=== PATIENT | female | born 1965 | race Caucasian/White ===

== ENCOUNTER 2025-03-04 14:11 | Outpatient (CLI) | payer OTHER, SELFPAY ==
--- NOTE | 2025-03-04 14:30 | MR_ITS ---
[address] [address] Phone:?[phone] Fax:?[phone] Referring Physician Information: Mickey Chapman M.D. [id number] [address] Phone:?[phone] Fax:?[phone] Patient:Ayala Martin D.O.B:?1965 Sex:?Female Phone:?[phone] [facility] MRN:?[id number] Exam Date:?03/04/2025 EXAM: MRI of the LEFT SHOULDER without contrast CLINICAL: Evaluate for rotator cuff tear. COMPARISONS: X-rays dated 01/14/2025. TECHNICAL: Multiplanar multisequence MRI of the left shoulder was obtained. SEDATION: None. CONTRAST: None. FINDINGS: Rotator cuff: Supraspinatus/Infraspinatus: There is advanced tendinosis of the distal supraspinatus tendon and anterior distal infraspinatus tendon. There is focal moderate partial interstitial insertional tearing of the anterior distal supraspinatus tendon on coronal series 5 image 11 with minimal partial interstitial insertional tearing of the remainder of the distal supraspinatus tendon. Mild partial interstitial tearing of the infraspinatus tendon. No significant fatty atrophy of the muscles. Teres minor: No tendinosis, tear or atrophy. Subscapularis: Mild tendinosis of the distal tendon without evidence of significant tendon tear. No significant fatty atrophy of the muscle. Bursae: Subacromial-subdeltoid: There is mild fluid within the anterior subdeltoid bursa. Mild edema within the remainder of the bursa. Subcoracoid: No significant bursal fluid. Coracoacromial arch: Acromion morphology: Type II. No os acromiale. Acromiohumeral space: Within normal limits. Coracohumeral space: Within normal limits. Biceps tendon, long head: There is moderate tendinosis of the intra-articular tendon. No evidence of significant tendon tear or displacement. Glenohumeral joint: No evidence of significant joint effusion. Articular cartilage: No significant chondral loss. Capsule: No evidence of capsular thickening or injury. Labrum: There is tearing of the superior labrum extending posterior to the biceps anchor as seen on coronal series 5 image 14-17. No additional labral tear identified on this nonarthrogram exam. No perilabral cyst identified. Bones: No suspicious marrow signal alteration, fracture or dislocation. Acromioclavicular joint: Advanced changes of arthrosis. No AC joint injury/widening. IMPRESSION: 1. Advanced tendinosis of the distal supraspinatus tendon and anterior distal infraspinatus tendon. There is focal moderate partial interstitial insertional tearing of the anterior distal supraspinatus tendon with minimal partial interstitial insertional tearing of the remainder of the distal supraspinatus tendon. Mild partial interstitial tearing of the infraspinatus tendon. 2. Mild tendinosis of the distal subscapularis tendon. 3. Moderate tendinosis of the intra-articular long head biceps tendon. 4. Tearing of the superior labrum. 5. Advanced AC joint arthrosis. JCZ Electronically signed on 03/04/2025 4:16:00 PM by Piero Soto D.O.
== END 2025-03-04 14:12 | disposition home or self-care (01) ==
LOC: MRI 14:12
PROVIDERS: PCP Internal Medicine; Visit Provider Orthopaedic Surgery
DX: M25.512 Pain in left shoulder (principal); M75.102 Unspecified rotator cuff tear or rupture of left shoulder, not specified as traumatic; S43.432A Superior glenoid labrum lesion of left shoulder, initial encounter; M19.012 Primary osteoarthritis, left shoulder; M25.812 Other specified joint disorders, left shoulder; M75.82 Other shoulder lesions, left shoulder
CPT/HCPCS: 73221

== ENCOUNTER 2025-03-07 06:03 | Day surgery (SDC) | payer OTHER, SELFPAY ==
[2025-03-07] VITALS (9 sets, daily range): BP systolic 118–149; BP diastolic 71–92; PULSE 59–64; RESP 14–16; TEMP 36.7–36.8; O2SAT 95–98; BMI 39.9
[2025-03-07] MEDS: LIDOCAINE 1% MDV INJECTION (07:05)
[2025-03-07] MEDS: BUPIVACAINE 0.5% 30 ML INJECTION (07:05)
--- NOTE | 2025-03-07 07:05 | P.ORPRC_ITS ---
Procedure Note Date of procedure: 03/07/25 Procedure: PREOPERATIVE DIAGNOSIS: 1. Right middle finger trigger digit 2. Right ring finger trigger digit POSTOPERATIVE DIAGNOSIS: 1. Right middle finger trigger digit 2. Right ring finger trigger digit PROCEDURE: 1. Right middle finger trigger (A1 flo) release 2. Right ring finger trigger (A1 flo) release SURGEON: Sg Chapman MD. SUPERVISOR DRIED [employer]AST: Esther Aleaxnder P.A.-C. An group fitness assistant department head was critical for this case to aid in patient positioning, tissue retraction, limb manipulation/positioning, and closure. ANESTHESIA: Local anesthetic IMPLANTS: None TOURNIQUET: Not utilized COMPLICATIONS: None INDICATIONS: The patient is a pleasant 59-year-old female who has history of right middle finger and ring finger pain and triggering. Symptoms did not improve with conservative management. Patient subsequently elected to proceed with surgical intervention consisting of right middle finger and ring finger A1 flo releases. Prior to surgery risks and benefits were discussed with patient all questions were answered informed consent was obtained. DESCRIPTION OF PROCEDURE: Patient was seen preoperatively and operative site was marked. The subcutaneous tissues overlying the right ring finger and middle finger A1 pulleys were injected with combination of 1% lidocaine and 0.25% bupivacaine. Patient was then brought to the operating room placed in supine position on the OR table. A tourniquet was placed on the patient's right arm and right upper extremity was prepped and draped in usual sterile fashion. A surgical time-out was performed confirming patient name, procedure, and location. A skin incision measuring approximately 1 cm was made longitudinally over the A1 flo of the right middle finger. Blunt dissection was used to dissect through subcutaneous tissues. Bipolar electrocautery was used to achieve hemostasis. The underlying flexor tendons and A1 flo were identified and retractors were used to protect the neurovascular structures. The A1 flo was then released using a tenotomy scissor. After complete release of the A1 flo, the patient was asked to flex and extend their fingers, and no active triggering was noted. Attention was then directed to the ring finger trigger release. A skin incision measuring approximately 1 cm was made longitudinally over the A1 flo of the right ring finger. Blunt dissection was used to dissect through subcutaneous tissues. Bipolar electrocautery was used to achieve hemostasis. The underlying flexor tendons and A1 flo were identified and retractors were used to protect the neurovascular structures. The A1 flo was then released using a tenotomy scissor. After complete release of the A1 flo, the patient was asked to flex and extend their fingers, and no active triggering was noted. Surgical incisions were then irrigated with normal saline. Skin incisions were closed with 4-0 nylon horizontal mattress sutures, and a sterile dressing was applied. Patient was then transferred to the recovery room in stable condition. POSTOPERATIVE PLAN: 1. Patient will be discharged to home day of surgery. 2. They were given instructions for wound care and finger range of motion exercises. 3. Ice, Tylenol and/or ibuprofen as needed for pain control. 4. Return to the clinic for follow-up evaluation in 10-14 days for wound check and suture removal.
--- NOTE | 2025-03-07 07:05 | W.PM.H&PU ---
History & Physical Update History & Physical Update H&P Reviewed and patient assessed: No changes noted
[2025-03-07] MEDS: LIDOCAINE 1% MDV 20 ML INJECTION (07:40)
[2025-03-07] MEDS: BUPIVACAINE 0.5 % 10 ML VIAL INJECTION (07:40)
[2025-03-07] MEDS: BACITRACIN OINTMENT BULK TUBE 1 APPLIC TOPICAL (07:47)
== END 2025-03-07 08:12 | disposition home or self-care (01) ==
PROVIDERS: PCP Internal Medicine; Visit Provider Orthopaedic Surgery
PROC: (CPT 26055; principal; 2025-03-07 07:15)
DX: M65.331 Trigger finger, right middle finger (principal); M65.341 Trigger finger, right ring finger
CPT/HCPCS: 26055 ×2; J2003; A9270; J0665

== ENCOUNTER 2025-04-25 09:07 | Day surgery (SDC) | payer OTHER, SELFPAY ==
[2025-04-25] VITALS (26 sets, daily range): BP systolic 97–142; BP diastolic 50–96; PULSE 60–81; RESP 14–24; TEMP 36.3–36.5; O2SAT 91–98; BMI 40.9
--- NOTE | 2025-04-25 09:39 | P.ORPRC_ITS ---
Procedure Note Date of procedure: 04/25/25 Procedure: PREOPERATIVE DIAGNOSES: 1. Left shoulder rotator cuff tendinosis. 2. Left shoulder subacromial impingement syndrome and bursitis. 3. Left shoulder acromioclavicular joint osteoarthritis POSTOPERATIVE DIAGNOSES: 1. Left shoulder rotator cuff tear (supraspinatus). 2. Left shoulder subacromial impingement syndrome and bursitis. 3. Left shoulder acromioclavicular joint arthritis. 4. Left shoulder superior labrum degenerative tearing NAME OF OPERATION: 1. Left shoulder arthroscopic rotator cuff repair. 2. Left shoulder arthroscopic bursectomy, subacromial decompression/partial acromioplasty. 3. Left shoulder arthroscopic glenohumeral debridement. 4. Left shoulder arthroscopic distal clavicle excision. SURGEON: Sg Chapman MD GEOMORPHOLOGY TEACHER: Esther Alexander P.A.-C.. An public health assistant was critical for this case to aid in patient positioning, suture manipulation, arm positioning, instrument positioning, and wound closure. ANESTHESIA: General plus preoperative supraclavicular block. IMPLANTS: Arthrex 2.6 mm FiberTak anchor double loaded and 4.75 mm knotless BioComposite SwiveLock anchor COMPLICATIONS: None ESTIMATED BLOOD LOSS: 10 mL INDICATIONS: The patient is a pleasant, 59-year-old female who has experienced left shoulder pain that has been increasing in recent time. Physical exam and imaging were consistent with a rotator cuff tendinosis, subacromial impingement, and acromioclavicular joint osteoarthritis. Given these findings and failure to improve with nonoperative management, recommendation was made for surgery. FINDINGS: Exam under anesthesia revealed stable shoulder with full range of motion. The diagnostic arthroscopy revealed healthy chondral surfaces of the glenohumeral joint. There was mild fraying of the upper subscapularis but subscapularis was otherwise intact. The long head of the biceps tendon was intact. There was fraying of the superior anterior superior labrum consistent with mild degenerative tear, but biceps anchor was intact. Labrum was stable after debridement. No loose bodies in the pouch or subscapularis recess. The rotator cuff tendon was found to be torn full thickness at the anterior margin measuring approximately 1 cm in the anterior posterior dimension with minimal retraction. Diffuse subacromial bursitis. Moderate acromioclavicular joint osteoarthritis with large inferior osteophytes. PROCEDURE: Following a thorough discussion of risks, benefits, and alternatives, consent was obtained and the operative shoulder was marked. A supraclavicular nerve block was performed by anesthesia staff in preop holding. The patient was brought to the operating room and placed supine on the operating table. Induction of anesthesia was completed, and patient was given IV Ancef preoperatively for prophylaxis. A surgical time-out was performed confirming patient identity, surgical site, and procedure. Patient was placed into the beach chair position. Head was placed in padded cotton header in neutral alignment, and all bony prominences were well padded. The operative shoulder and upper extremity were prepped and draped in the appropriate sterile fashion using ChloraPrep. The glenohumeral joint was injected with 40 mL of normal saline using and 18g spinal needle from a posterior approach. Posterior portal was established. Anterior portal was established after localization with a spinal needle and a 7.0 mm cannula was silvana hunter here. Diagnostic arthroscopy was then performed with findings as noted above. Attention was 1st directed to debridement of the glenohumeral joint. The frayed aspects of the superior labrum were debrided with motorized shaver as were the frayed aspects of the upper subscapularis. After debridement the subscapularis was confirmed to be intact. The labrum was also intact and stable. The biceps tendon was normal in appearance. There was noted be full-thickness tear of the anterior supraspinatus. The footprint was debrided of soft tissue using the motorized shaver and the degenerative portions of the undersurface of the cuff tissue were debrided with a shaver. A Cam was then moved to the subacromial space. A lateral portal was established after localization with spinal needle. Subacromial bursectomy was performed with arthroscopic shaver and radiofrequency ablator. Subacromial decompression and partial acromioplasty was performed using the bone-cutting shaver and arthroscopic bur. Attention was then directed to the rotator cuff repair. Footprint was debrided of soft tissue and gently decorticated with the bur. Frayed edges of the tendon were debrided with a shaver. The cuff was easily mobilized back to its footprint. A passport cannula placed in lateral portal. A 2.6 mm FiberTak anchor double loaded with tape was placed in the medial aspect of the supraspinatus footprint. Dianxinion suture Passer was then used to pass each limb of suture the cuff tendon. All 4 limbs were then brought over the top of the tendon and incorporated into a 4.75 mm knotless BioComposite SwiveLock anchor which was placed lateral to the supraspinatus footprint. The sutures were tensioned and the SwiveLock anchor was secured into position. The knotless suture was passed through the anterior aspect of the supraspinatus and tension. Remnant sutures were all cut and removed. The cuff was then inspected and was noted be firmly reattached to its footprint. Attention was then directed to the acromioclavicular joint. Joint was debrided of soft tissue using the radiofrequency ablator. The bur inferior bone spurs off the acromion and clavicle at the acromioclavicular joint were removed using combination of the bone-cutting shaver and the arthroscopic bur. A distal clavicle excision was then completed using the bone-cutting shaver and bur. A 70 degree scope was utilized to assist with visualization. After distal clavicle excision was performed acromioclavicular distance measured approximately 1 cm. Hemostasis was achieved with the radiofrequency ablator. Instruments and cannulas were removed from the joint. Excess fluid was drained, and wound closure performed with 3-0 nylon simple interrupted sutures. Sterile dressings were applied, and arm was placed into an abduction sling. The patient was rotated into the supine position, awoken from anesthesia, and transferred to the PACU in stable condition. PLAN: 1. Discharged to home day of surgery. 2. Ice for pain and swelling. 3. Tylenol and oxycodone as needed for pain control. 4. Abduction sling at all times except for ROM and showering. -Remove sling several times daily for pendulum exercises finger, wrist, and elbow range of motion. 5. Follow-up in orthopedic clinic in 10-14 days for wound check and suture removal. 6. Will initiate formal physical therapy 1-2 weeks postoperatively per the standard rotator cuff repair protocol
--- NOTE | 2025-04-25 09:39 | W.PM.H&PU ---
History & Physical Update History & Physical Update H&P Reviewed and patient assessed: No changes noted
[2025-04-25] MEDS: LACTATED RINGERS 1000 ML 1,000 ML 100 ML IV ×2 (09:57→11:32)
[2025-04-25] MEDS: SODIUM CHLORIDE 0.9 % (FLUSH) 10 ML SYRINGE IVF (09:58)
[2025-04-25] MEDS: MIDAZOLAM HCL 1 MG/ML inj IVP (10:12)
--- NOTE | 2025-04-25 10:15 | SUR.PREOP ---
TIME?OUT:?1010, left shoulder PT/RN/MDA?VERIFICATION?OF?SURGICAL?SITE,?PROCEDURE,?AND?CONSENT OBTAINED?PRIOR?TO?INVASIVE?PROCEDURE.
[2025-04-25] MEDS: EPINEPHrine 1 MG in SODIUM CHLORIDE IRRIG SOLUTION 3,000 ML 3001 MG IRRIGATION ×8 (11:21→12:40)
--- NOTE | 2025-04-25 11:26 | SUR.OPER ---
PATIENT QUESTIONS ANSWERED SATISFACTORILY PREOPERATIVELY. PATIENT BROUGHT TO OR #3 PER CART FOLLOWING THE BLOCK. Patient positioned supine on OR #3 bed for the intubation.? Perioperative team wrapped the right arm in a neutral position on the pt. abdomen with the drawsheet. Left arm elevated on an IV pole in a padded strap. Final approval of positioning by surgeon. CONTINUOUS IRRIGATION OF THE LEFT SHOULDER WITH MIXTURE OF 3000 NACL AND 1mg OF EPINEPHRINE DURING PROCEDURE.
--- NOTE | 2025-04-25 11:49 | P.ANES_ITS ---
Anesthesia Charges Start Date/Time Anesthesia Start Date: 04/25/25 Anesthesia Start Time: 10:47 Stop Date/Time Anesthesia Stop Date: 04/25/25 Anesthesia Stop Time: 13:27 Coding CPT Codes CPT Codes: ANESTH SURGERY OF SHOULDER - 84790 ([id number]) P3 - PATIENT W/SEVERE SYS DISEASE, QK - RN TELEMETRY 2-4 CNCRNT ANES PROC, QX - METER CALIBRATOR SVC W/ MD MED DIRECTION
--- NOTE | 2025-04-25 11:49 | W.ANESCHARGE ---
Anesthesia Charges Start Date/Time Anesthesia Start Date: 04/25/25 Anesthesia Start Time: 10:47 Stop Date/Time Anesthesia Stop Date: 04/25/25 Anesthesia Stop Time: 13:27 Coding CPT Codes CPT Codes: ANESTH SURGERY OF SHOULDER - 59822 ([id number]) P3 - PATIENT W/SEVERE SYS DISEASE, QK - ELECTROPLATING LABORER 2-4 CNCRNT ANES PROC, QX - GEOTHERMAL POWERPLANT MECHANIC SVC W/ MD MED DIRECTION
--- NOTE | 2025-04-25 11:50 | P.NB_ITS ---
Nerve Block Nerve Block Time Seen by Provider: 10:10 Date Seen: 04/25/25 Type of block requested by surgeon for post-operative analgesia: supraclavicular Side: left Time out performed: Yes Verification of patient name: Yes Verification of date of : Yes Site marking: site marked Name of person performing procedure: Santana Continuous monitoring Was continuous monitoring of O2 sat, B/P, threat monitoring analyst, recorded every 15 minutes?: Yes Procedure Checklist: sterile prep, needles and gloves Ultrasound guided. Images saved: Yes Medications given in 5ml increments after negative aspiration: Ropivicaine %: 0.5 mL: 15 Needle gauge: 22 Precedex (mcg): 25 Patient tolerated procedure well: Yes Block Charges Block Charge (with Pro Fee): Brachial Plexus Use of Ultrasound Machine for Block: Yes- US Guidance/pain block
--- NOTE | 2025-04-25 13:25 | P.ANES_ITS ---
Anesthesia Charges Start Date/Time Anesthesia Start Date: 04/25/25 Anesthesia Start Time: 10:47 Stop Date/Time Anesthesia Stop Date: 04/25/25 Anesthesia Stop Time: 13:27 Coding CPT Codes CPT Codes: ANESTH SURGERY OF SHOULDER - 53188 ([id number]) P3 - PATIENT W/SEVERE SYS DISEASE, QK - SALES DONOR RECRUITMENT REPRESENTATIVE 2-4 CNCRNT ANES PROC, QX - BAKER HELPER SVC W/ MD MED DIRECTION
--- NOTE | 2025-04-25 13:25 | W.ANESCHARGE ---
Anesthesia Charges Start Date/Time Anesthesia Start Date: 04/25/25 Anesthesia Start Time: 10:47 Stop Date/Time Anesthesia Stop Date: 04/25/25 Anesthesia Stop Time: 13:27 Coding CPT Codes CPT Codes: ANESTH SURGERY OF SHOULDER - 75023 ([id number]) P3 - PATIENT W/SEVERE SYS DISEASE, QK - TECHNICAL PRODUCT MANAGER 2-4 CNCRNT ANES PROC, QX - SHED BOSS SVC W/ MD MED DIRECTION
[2025-04-25] MEDS: ONDANSETRON 2 MG/ML inj 4 MG IVP (13:37)
--- NOTE | 2025-04-25 13:55 | SUR.PHASEI ---
Patient feels stills nauseous, anesthesia consulted, Haldol given by anesthesia.They will check back in a few minutes.
--- NOTE | 2025-04-25 13:59 | SUR.PHASEI ---
Tried a quesy essential oil patch for nausea. Patient did not like that.
--- NOTE | 2025-04-25 14:20 | SUR.PHASEI ---
Patient still nauseous and feeling terrible. Anesthesia has given two doses of Haldol.
[2025-04-25] MEDS: FOSAPREPITANT 150 MG inj 150 MG in 0.9 % SODIUM CHLORIDE 250 ml 250 ML 765 MG IVPB (14:29)
--- NOTE | 2025-04-25 14:31 | SUR.PHASEI ---
Patient sleeping, when asked, she said she is a little better. Plan to bring her to Phase II.
--- NOTE | 2025-04-25 14:36 | SUR.PHASEI ---
Medication started IVPB for nausea per anesthesia order. Okayed by [facility] to take patient the PHASE II.
== END 2025-04-25 16:33 | disposition home or self-care (01) ==
PROVIDERS: PCP Internal Medicine; Visit Provider Orthopaedic Surgery
PROC: (CPT 29805; principal; 2025-04-25 10:15)
DX: M75.102 Unspecified rotator cuff tear or rupture of left shoulder, not specified as traumatic (principal); M75.42 Impingement syndrome of left shoulder; M19.012 Primary osteoarthritis, left shoulder; S43.432A Superior glenoid labrum lesion of left shoulder, initial encounter; G89.18 Other acute postprocedural pain; E11.9 Type 2 diabetes mellitus without complications; I10 Essential (primary) hypertension
CPT/HCPCS: 29827; 29826; 29824; 29822; 01630; 64415; 76942; 82962; C1713; J0169; J0330; J0690; J1100; J1453; J1630; J2250; J2371; J2405; J2795; J3010; J7050; J7120; L3670